=== PATIENT | male | born 2000 | race African-American/Black ===

== ENCOUNTER 2022-03-26 11:39 | Emergency (ER) | payer OTHER ==
[~2022-03-26] VITALS: Ht 167.6 cm; Wt 72.1 kg
[2022-03-26 13:41] VITALS: BP 121/60
== END 2022-03-26 14:02 | disposition home or self-care (01) ==
LOC: M ED 11:39
DX: S63.286A Dislocation of proximal interphalangeal joint of right little finger, initial encounter (principal); X50.9XXA Other and unspecified overexertion or strenuous movements or postures, initial encounter; Y92.410 Unspecified street and highway as the place of occurrence of the external cause; Y93.67 Activity, basketball; Y99.8 Other external cause status; Z98.890 Other specified postprocedural states